=== PATIENT | female | born 1950 | race Caucasian/White ===

== ENCOUNTER 2020-02-20 06:01 | Day surgery (SDC) | payer MEDICARE, OTHER ==
[~2020-02-20 06:01] MED LIST: Acetaminophen 325 MG Tab PO ONE; Lactated Ringers 1,000 ML IV SCH; Lidocaine 1%/Sod Bicarbonate in NS 8.4% 1 ML Syringe IDERM PRN; Pregabalin 25 MG Cap PO SCH; Sodium Chloride 0.9% 10 ML Syringe FLUSH PRN; oxyCODONE ER 10 MG TAB.ER PO SCH
[2020-02-20] MEDS ORDERED: Naloxone 0.4 MG/ML SDV IVPUSH PRN (06:43)
[2020-02-20] MEDS ORDERED: Morphine 2 MG/ML SYRINGE IVPUSH PRN (06:43)
[2020-02-20] MEDS ORDERED: Sennosides 8.6 MG Tab PO PRN (06:43)
[2020-02-20] MEDS ORDERED: Ondansetron 4 MG/2 ML SDV IVPUSH PRN (06:43)
[2020-02-20] MEDS ORDERED: Cyclobenzaprine 10 MG Tab PO PRN (06:43)
[2020-02-20] MEDS ORDERED: Bisacodyl 5 MG Tab PO PRN (06:43)
[2020-02-20] MEDS ORDERED: Magnesium Hydroxide 400 MG/5 ML Susp 30 ML Cup PO PRN (06:43)
--- NOTE | 2020-02-20 07:14 | PCM.PREANE ---
Preanesthetic Assessment - Anesthesia/Transfusion/Family Hx Anesthesia History: Prior Anesthesia Without Reaction Transfusion History: No Prior Transfusion(s) - Review of Systems General: No Symptoms Pulmonary: No Symptoms Cardiovascular: No Symptoms Gastrointestinal: No Symptoms Neurological: No Symptoms Other: Reports: None - Physical Assessment NPO Status Date: 02/19/20 NPO Status Time: 21:15 Vital Signs: Last Vital Signs Temp 97.3 F 02/20/20 06:05 Pulse 70 02/20/20 06:05 Resp 16 02/20/20 06:05 BP 140/84 02/20/20 06:05 Pulse Ox 97 02/20/20 06:05 Height: 1.65 m Weight: 88.451 kg ASA Class: 2 Mental Status: Alert & Oriented x3 Airway Class: Mallampati = 3 Thyro-Mental Finger Breadths: 3 Mouth Opening Finger Breadths: 3 ROM/Head Extension: Full Lungs: Clear to Auscultation, Normal Respiratory Effort Cardiovascular: Regular Rate, Regular Rhythm - Lab Values: Laboratory Last Values SARS Virus RNA (PCR) Negative (NEGATIVE) 02/18/20 13:15 MRSA (PCR) Negative 02/05/20 17:20 - Allergies Allergies/Adverse Reactions: Allergies Allergy/AdvReac Type Severity Reaction Status Date / Time adhesive tape Allergy Itching Verified 02/18/19 09:41 - Acknowledgements Anesthesia Type Planned: General Anesthesia, Spinal, Regional Block (adductor canal) Pt an Appropriate Candidate for the Planned Anesthesia: Yes Alternatives and Risks of Anesthesia Discussed w Pt/Guardian: Yes Pt/Guardian Understands and Agrees with Anesthesia Plan: Yes PreAnesthesia Questionnaire Cardiovascular History: Reports: High Cholesterol Gastrointestinal History: Reports: GERD - Past Surgical History GI Surgical History: Reports: Colonoscopy, EGD, Hernia Repair/Other Female Surgical History: Reports: D&C, Other (See Below) Other Female Surgeries/Procedures: hysteroscopy Other Neurological Surgeries/Procedures: back surgery - no hardware Musculoskeletal Surgical History: Reports: Knee Replacement - SUBSTANCE USE Smoking Status *Q: Never Smoker Recreational Drug Use History: No - HOME MEDS Home Medications: Home Meds Aspirin [Low Dose Aspirin EC] 81 mg PO DAILY 02/20/20 [History] Calcium Carb/Vit D3/Minerals [Calcium 600+D Plus Minerals] 1 tab PO DAILY [History] Cholecalciferol (Vitamin D3) [Vitamin D3] 1,000 unit PO DAILY 02/20/20 [History] Metoprolol Tartrate 25 mg PO DAILY 02/20/20 [History] Multivitamin [Multivitamins] 1 cap PO DAILY 02/20/20 [History] Omeprazole 20 mg PO DAILY 02/20/20 [History] Simvastatin 20 mg PO DAILY 02/20/20 [History] - CURRENT (IN HOUSE) MEDS Current Meds: Current Medications Aspirin (Ecotrin) 325 mg PO BID [facility] Bisacodyl (Dulcolax) 5 mg PO DAILY PRN PRN Reason: Constipation Morphine Sulfate 8 mg/Epinephrine HCl 0.3 mg/Cefuroxime Sodium 750 mg/Ketorolac Tromethamine 30 mg/Sodium Chloride 7.9 ml 0 mg .XX ONETIME ONE Stop: 02/20/20 07:31 Cyclobenzaprine HCl (Flexeril) 10 mg PO TID PRN PRN Reason: Spasms Docusate Sodium (Colace) 100 mg PO BID [facility] Famotidine (Pepcid) 20 mg PO Q12H [facility] Lactated Ringer's (Ringers, Lactated) 1,000 mls @ 125 mls/hr IV ASDIRECTED [facility] Stop: 02/20/20 23:00 Last Admin: 02/20/20 06:51 Dose: 125 mls/hr Cefazolin Sodium/Dextrose 2 gm (/ Premix) 50 mls @ 100 mls/hr IV Q8H [facility] Stop: 02/20/20 23:14 Lidocaine/Sodium Bicarbonate (Buffered Lidocaine 1% In Ns 8.4%) 0.25 ml IDERM ONETIME PRN PRN Reason: Prior to IV Start Stop: 02/20/20 18:00 Last Admin: 02/20/20 06:51 Dose: 0.25 ml Magnesium Hydroxide (Milk Of Magnesia) 30 ml PO BID PRN PRN Reason: Constipation Morphine Sulfate (Morphine) 2 mg IVPUSH Q2H PRN PRN Reason: Breakthrough Pain Naloxone HCl (Narcan) 0.1 mg IVPUSH Q5M PRN PRN Reason: Oversedation Ondansetron HCl (Zofran) 4 mg IVPUSH Q6H PRN PRN Reason: Nausea/Vomiting Oxycodone HCl (Oxycontin) 10 mg PO ONETIME [facility] Stop: 02/20/20 12:00 Last Admin: 02/20/20 06:36 Dose: 10 mg Oxycodone/Acetaminophen (Percocet 325-5 Mg) 1 - 2 tab PO Q4H PRN PRN Reason: Pain Pregabalin (Lyrica) 50 mg PO ONETIME [facility] Stop: 02/20/20 12:00 Last Admin: 02/20/20 06:36 Dose: 50 mg Senna (Senna) 8.6 mg PO BID PRN PRN Reason: Constipation Sodium Chloride (Saline Flush) 10 ml FLUSH ASDIRECTED PRN PRN Reason: Keep Vein Open Stop: 02/20/20 18:00 Discontinued Medications Acetaminophen (Tylenol) 975 mg PO NOW ONE Stop: 02/20/20 05:59 Last Admin: 02/20/20 06:36 Dose: 975 mg Bupivacaine HCl (Sensorcaine-Mpf 0.25%) Confirm Administered Dose 30 ml .ROUTE .STK-MED ONE Stop: 02/20/20 06:24 Cefazolin Sodium (Ancef) Confirm Administered Dose 2 gm .ROUTE .STK-MED ONE Stop: 02/20/20 06:24 Iodine (Iodine 2% Mild Tincture) Confirm Administered Dose 30 ml .ROUTE .STK- MED ONE Stop: 02/20/20 06:24 Tranexamic Acid (Cyklokapron) Confirm Administered Dose 1,000 mg .ROUTE .STK- MED ONE Stop: 02/20/20 06:24 Vancomycin HCl (Vancomycin) Confirm Administered Dose 1 gm .ROUTE .STK-MED ONE Stop: 02/20/20 06:24
[2020-02-20] MEDS ORDERED: ceFAZolin 1 GM Vial ONE (07:28)
[2020-02-20] MEDS ORDERED: Bupivacaine 0.75% 30 ML SDV ONE (07:28)
[2020-02-20] MEDS ORDERED: Midazolam 1 MG/ML 2 ML SDV ONE (07:29)
[2020-02-20] MEDS ORDERED: Propofol 200 MG/20 ML SDV ONE (07:29)
[2020-02-20] MEDS ORDERED: Lidocaine 1% 4 ML ONE (07:33)
[2020-02-20] MEDS: Iodine/Sodium Iodide 2% Tincture 30 ML Bottle ONE ×2 (08:33→08:54)
[2020-02-20] MEDS: ceFAZolin 1 GM Vial ONE ×2 (08:33→08:54)
[2020-02-20] MEDS: Bupivacaine 0.25% 10 ML SDV ONE ×2 (08:35→08:58)
[2020-02-20] MEDS: Vancomycin 1 GM SDV ONE ×2 (08:38→09:02)
[2020-02-20] MEDS: Morphine 8 MG, EPINEPHrine 0.3 MG, Cefuroxime 750 MG, Ketorolac 30 MG, Sodium Chloride ... ONE ×10 (08:39→08:58)
[2020-02-20] MEDS ORDERED: Ropivacaine 0.5% 5 MG/ML 30 ML SDV ONE (08:58)
[2020-02-20] MEDS ORDERED: EPINEPHrine 1 MG/ML SDV ONE (08:58)
--- NOTE | 2020-02-20 09:57 | PCM.POSTAN ---
POST ANESTHESIA ASSESSMENT - MENTAL STATUS Mental Status: Alert, Oriented - VITAL SIGNS Vital Signs: Last Vital Signs Temp 97.2 F 02/20/20 09:30 Pulse 70 02/20/20 06:05 Resp 18 02/20/20 09:30 BP 122/56 L 02/20/20 09:30 Pulse Ox 94 L 02/20/20 09:30 - RESPIRATORY Respiratory Status: Respiratory Rate WNL, Airway Patent, O2 Saturation Stable - CARDIOVASCULAR CV Status: Pulse Rate WNL, Blood Pressure Stable - GASTROINTESTINAL GI Status: No Symptoms - PAIN Pain Score: 0 (post SAB) - POST OP HYDRATION Hydration Status: Adequate & Stable
--- NOTE | 2020-02-20 10:06 | PCM.PRNOTE ---
- Free Text/Narrative Note: Postoperative regional pain control requested by surgeon. Pre-op Dx: Rt knee osteoarthritis. Post-op Rx: Total Rt knee arthroplasty. Procedure: Rt Adductor canal block with U/S guidance Requesting physician: Dr. Eugenio Sylvester� Risks and benefits discussed with the patient preoperatively including infection , bleeding, incomplete or failed block, possible nerve damage, local anesthetic toxicity. Permit signed. Patient after spinal anesthesia post surgery in PACU, stable , alert and awake. Time out performed. Right mid-thigh was prepped with Chloraprep x 1 and allowed to dry. Under aseptic technique, the right femoral artery and sartorius muscle were identified under ultrasound prior to needle insertion. 4" Stimuplex needle #22 [id number] was inserted under US guidance. Under direct visualization of needle tip the injection of 0.5% Ropivacaine with 1:200k epinephrine and 100mcg of Clonidine , total of 30 mls in divided doses, maintaining negative aspiration was completed without problems. No local anesthetic toxicity was noted. Patient is awake, stable and tolerated the procedure well. Time: 09:43 - 09:51 Please see attached U/S pictures.
[2020-02-20] MEDS ORDERED: cloNIDine 1,000 MCG/10 ML SDV ONE (10:34)
--- NOTE | 2020-02-20 10:39 | CR ---
Right knee: AP and lateral views of the right knee were obtained. Comparison: No prior knee exam is available. Knee prosthesis is seen. Components are aligned. Soft tissue air is noted from the surgical procedure. No underlying bony abnormality is seen. Impression: 1. Satisfactory radiographic appearance of recently placed right knee prosthesis. Diagnostic code #2 This report was dictated in MDT
--- NOTE | 2020-02-20 10:56 | PCM.OPNOTE ---
- General Post-Op/Procedure Note Date of Surgery/Procedure: 02/20/20 Operative Procedure(s): right total knee arthroplasty Pre Op Diagnosis: right knee osteoarthrosis Post-Op Diagnosis: Same Anesthesia Technique: Local, MAC, Spinal Primary Surgeon: Eugenio Campbell Anesthesia Provider: Kael Ho Radiosonde Operator: Dina Lopez Radiosonde Operator: Sapna Kessler EBWild in mLs: 5 Complications: None Condition: Good Free Text/Narrative:: Intake & Output 02/19/20 02/20/20 02/20/20 22:59 06:59 14:59 Intake Total 400 Balance 400 3/ 10mm 29x9
[2020-02-20] MEDS ORDERED: Lactated Ringers 1,000 ML ONE (12:13)
[2020-02-20] MEDS: ceFAZolin 2 GM in Premix Bag 1 BAG IV SCH (15:23)
--- NOTE | 2020-02-20 15:58 | OR ---
DATE OF OPERATION: 02/20/2020 SURGEON: Eugenio Campbell MD OPERATION PERFORMED: Right total knee arthroplasty. PREOPERATIVE DIAGNOSIS: Right knee osteoarthrosis. POSTOPERATIVE DIAGNOSIS: Right knee osteoarthrosis. ANESTHESIA: Local MAC with spinal. ANESTHESIA PROVIDER: Aidee Vasquez. ASSISTANTS: 1. Dina Lopez PA-C. 2. Sapna Kessler LPN. ESTIMATED BLOOD LOSS: 5 mL. COMPLICATIONS: None. CONDITION: Stable. IMPLANTS: 1. [place] size 3 cemented PS femur. 2. Olivia size 3 cemented [place] tibial baseplate. 3. Olivia size 3, 10 mm PS X3 polyethylene. 4. Olivia size 29 x 9 mm cemented asymmetric patella. DESCRIPTION OF PROCEDURE: The patient was identified in the preop holding area. Proper site was marked and identified by the surgeon. The patient was taken back to the operating theater. After adequate anesthesia, the patient's right lower extremity had a nonsterile tourniquet applied and it was sterilely prepped and draped in the usual sterile fashion. OR time-out was performed. The patient received 2 g IV Ancef. At this time, the right lower extremity was exsanguinated. Tourniquet was insufflated to 300 mmHg. Standard medial parapatellar incision was made. Medial parapatellar arthrotomy was created. Deep fibers of the MCL were raised and anterior fat pad was resected. At this time, attention was turned to the patella. Patella measured 21, it was resected to a 13 for a 29 x 9 mm patella. Drill holes were then drilled and found to be in adequate position. The drill was then drilled in the distal femur and the intramedullary distal femoral cutting guide was then placed. 8 mm was resected off the distal femur and was found to be an adequate resection. Sizing guide was placed. It was found to be a size 3 cemented PS femur that was shown on the implant record at the beginning of this dictation. The drill holes were drilled for the epicondylar axis using Whitesides line and epicondyles as reference. At this time, the 4-in-1 cutting block was placed. An anterior posterior and anterior and posterior chamfer cuts were then completed. Box cut was completed at this time. Attention was turned to the tibia. The posterior medial lateral retractors were placed. The extramedullary tibial guide was placed. It was placed in the old footprint of the ACL. It was aligned with the center of the ankle and 0 degrees of slope, 9 mm was then resected off the unaffected side. There was found to be an acceptable reduction. At this time, posterior osteophytes were removed along with medial and lateral meniscus. A trial implant was placed with a correct sized tibia that was mentioned at the beginning of the dictation. A [place] size 3, 10 mm PS X3 polyethylene insert was then placed. The patient's knee was brought through range of motion. The patella was tracking centrally and was stable to varus and valgus stress. Alignment was found to be roughly at 0 degrees. The tibia was stamped and drilled in proper rotation. Cement was mixed and all cut surfaces were irrigated and dried. The universal tibial base plate was impacted in place. Next, the [place] size 3 cemented PS femur impacted into place and the [place] size 3, 10 mm PS X3 polyethylene insert was placed. The patient's knee was brought into full extension. The patella was then cemented in place at this time. One liter dilute Betadine solution was irrigated through the knee along with 3 L of pulse lavage irrigation with Ancef. Periarticular injection was then completed. The patient's knee was brought through a range of motion. Once the cement had time to set up and it was found to be stable to varus valgus stress, the patella was tracking centrally with full range of motion. At this time, a #2 barbed suture was used for closure of the medial parapatellar arthrotomy. Topical tranexamic acid was placed. 2-0 Vicryl was used subcutaneously, Prineo was used for the skin. The patient tolerated the procedure well and was sent to the PACU in stable condition. MMODAL /[id number] PHILIPPE
[2020-02-20] MEDS: Acetaminophen/oxyCODONE 325-5 MG Tab PO PRN ×2 (16:24→20:39)
[2020-02-20] MEDS: Famotidine 20 MG Tab PO SCH (20:39)
[2020-02-20] MEDS: Docusate Sodium 100 MG Cap PO SCH (20:39)
[2020-02-20] MEDS ORDERED: Simvastatin 20 MG Tab PO SCH (21:00)
[2020-02-21] MEDS: Acetaminophen/oxyCODONE 325-5 MG Tab PO PRN ×3 (00:08→10:31)
[2020-02-21] MEDS: ceFAZolin 2 GM in Premix Bag 1 BAG IV SCH ×2 (00:09→06:34)
[2020-02-21] MEDS: Aspirin 325 MG Tab.EC PO SCH ×2 (06:34→08:23)
[2020-02-21] MEDS ORDERED: Pantoprazole 40 MG Tab.CR PO SCH (07:00)
[2020-02-21] MEDS: Docusate Sodium 100 MG Cap PO SCH (08:24)
--- NOTE | 2020-02-21 08:25 | PCM.SURGPN ---
- General Info Date of Service: 02/21/20 POD#: 1 Functional Status: Reports: Pain Controlled, Tolerating Diet, Ambulating, Urinating, Incentive Spirometry - Patient Data Vitals - Most Recent: Last Vital Signs Temp 98.1 F 02/21/20 04:47 Pulse 68 02/21/20 04:47 Resp 16 02/21/20 04:47 BP 125/68 02/21/20 04:47 Pulse Ox 94 L 02/21/20 04:47 Weight - Most Recent: 195 lb I&O - Last 24 Hours: Intake & Output 02/20/20 02/21/20 02/21/20 22:59 06:59 14:59 Intake Total 770 470 Output Total 700 250 Balance 70 220 Lab Results Last 24 Hrs: Laboratory Results - last 24 hr 02/21/20 02/21/20 Range/Units 05:20 05:20 WBC 7.55 (3.98-10.04) K/mm3 RBC 3.56 L (3.98-5.22) M/mm3 Hgb 11.4 (11.2-15.7) gm/dl Hct 36.0 (34.1-44.9) % MCV 101.1 H (79.4-94.8) fl MCH 32.0 (25.6-32.2) pg MCHC 31.7 L (32.2-35.5) g/dl RDW Std Deviation 50.1 H (36.4-46.3) fL Plt Count 243 (182-369) K/mm3 MPV 10.2 (9.4-12.3) fl Sodium 141 (136-145) mEq/L Potassium 3.9 (3.5-5.1) mEq/L Chloride 105 (98-107) mEq/L Carbon Dioxide 30 (21-32) mEq/L Anion Gap 9.9 (5-15) BUN 17 (7-18) mg/dL Creatinine 1.0 (0.55-1.02) mg/dL Est Cr Clr Drug Dosing 48.45 mL/min Estimated GFR (MDRD) 55 (>60) mL/min BUN/Creatinine Ratio 17.0 (14-18) Glucose 127 H (80-115) mg/dL Calcium 8.7 (8.5-10.1) mg/dL Total Bilirubin 0.5 (0.2-1.0) mg/dL AST 25 (15-37) U/L ALT 31 (14-59) U/L Alkaline Phosphatase 63 (46-116) U/L Total Protein 5.9 L (6.4-8.2) g/dl Albumin 3.0 L (3.4-5.0) g/dl Globulin 2.9 gm/dL Albumin/Globulin Ratio 1.0 (1-2) Med Orders - Current: Current Medications Aspirin (Ecotrin) 325 mg PO BID [facility] Last Admin: 02/21/20 06:34 Dose: Not Given Bisacodyl (Dulcolax) 5 mg PO DAILY PRN PRN Reason: Constipation Calcium Carbonate (Calcium Carbonate/Vitamin D 600 Mg-200 Unit) 1 tab PO DAILY [facility] Last Admin: 02/21/20 08:21 Dose: 1 tab Cholecalciferol (Vitamin D3) 25 mcg PO DAILY [facility] Last Admin: 02/21/20 08:22 Dose: 25 mcg Cyclobenzaprine HCl (Flexeril) 10 mg PO TID PRN PRN Reason: Spasms Docusate Sodium (Colace) 100 mg PO BID [facility] Last Admin: 02/20/20 20:39 Dose: 100 mg Famotidine (Pepcid) 20 mg PO Q12H [facility] Last Admin: 02/20/20 20:39 Dose: 20 mg Magnesium Hydroxide (Milk Of Magnesia) 30 ml PO BID PRN PRN Reason: Constipation Metoprolol Tartrate (Lopressor) 25 mg PO DAILY [facility] Morphine Sulfate (Morphine) 2 mg IVPUSH Q2H PRN PRN Reason: Breakthrough Pain Multivitamins (Thera) 1 each PO DAILY [facility] Last Admin: 02/21/20 08:21 Dose: 1 each Naloxone HCl (Narcan) 0.1 mg IVPUSH Q5M PRN PRN Reason: Oversedation Ondansetron HCl (Zofran) 4 mg IVPUSH Q6H PRN PRN Reason: Nausea/Vomiting Oxycodone/Acetaminophen (Percocet 325-5 Mg) 1 - 2 tab PO Q4H PRN PRN Reason: Pain Last Admin: 02/21/20 04:52 Dose: 2 tab Pantoprazole Sodium (Protonix) 40 mg PO DAILY@0700 [facility] Last Admin: 02/21/20 06:45 Dose: 40 mg Senna (Senna) 8.6 mg PO BID PRN PRN Reason: Constipation Simvastatin (Zocor) 20 mg PO BEDTIME [facility] Last Admin: 02/20/20 20:38 Dose: 20 mg Discontinued Medications Acetaminophen (Tylenol) 975 mg PO NOW ONE Stop: 02/20/20 05:59 Last Admin: 02/20/20 06:36 Dose: 975 mg Bupivacaine HCl (Sensorcaine-Mpf 0.25%) Confirm Administered Dose 30 ml .ROUTE .STK-MED ONE Stop: 02/20/20 06:24 Last Admin: 02/20/20 08:58 Dose: 30 ml Bupivacaine HCl (Sensorcaine-Mpf 0.75%) Confirm Administered Dose 30 ml .ROUTE .STK-MED ONE Stop: 02/20/20 07:29 Cefazolin Sodium (Ancef) Confirm Administered Dose 2 gm .ROUTE .STK-MED ONE Stop: 02/20/20 06:24 Last Admin: 02/20/20 08:54 Dose: 2 gm Cefazolin Sodium (Ancef) Confirm Administered Dose 2 gm .ROUTE .STK-MED ONE Stop: 02/20/20 07:29 Clonidine HCl (Duraclon) Confirm Administered Dose 1,000 mcg .ROUTE .STK-MED ONE Stop: 02/20/20 10:35 Morphine Sulfate 8 mg/Epinephrine HCl 0.3 mg/Cefuroxime Sodium 750 mg/Ketorolac Tromethamine 30 mg/Sodium Chloride 7.9 ml 0 mg .XX ONETIME ONE Stop: 02/20/20 07:31 Last Admin: 02/20/20 08:58 Dose: 788.3 mg Epinephrine HCl (Adrenalin) Confirm Administered Dose 1 mg .ROUTE .STK-MED ONE Stop: 02/20/20 08:59 Lactated Ringer's (Ringers, Lactated) 1,000 mls @ 125 mls/hr IV ASDIRECTED [facility] Stop: 02/20/20 23:00 Last Admin: 02/20/20 06:51 Dose: 125 mls/hr Cefazolin Sodium/Dextrose 2 gm (/ Premix) 50 mls @ 100 mls/hr IV Q8H [facility] Stop: 02/21/20 07:59 Last Admin: 02/21/20 06:34 Dose: Not Given Lidocaine HCl (Xylocaine-Mpf 1%) Confirm Administered Dose 4 mls @ as directed .ROUTE .STK-MED ONE Stop: 02/20/20 07:34 Lactated Ringer's (Ringers, Lactated) Confirm Administered Dose 1,000 mls @ as directed .ROUTE .STK-MED ONE Stop: 02/20/20 12:14 Iodine (Iodine 2% Mild Tincture) Confirm Administered Dose 30 ml .ROUTE .STK- MED ONE Stop: 02/20/20 06:24 Last Admin: 02/20/20 08:54 Dose: 18 ml Lidocaine/Sodium Bicarbonate (Buffered Lidocaine 1% In Ns 8.4%) 0.25 ml IDERM ONETIME PRN PRN Reason: Prior to IV Start Stop: 02/20/20 18:00 Last Admin: 02/20/20 06:51 Dose: 0.25 ml Midazolam HCl (Versed 1 Mg/Ml) Confirm Administered Dose 2 mg .ROUTE .STK-MED ONE Stop: 02/20/20 07:30 Oxycodone HCl (Oxycontin) 10 mg PO ONETIME [facility] Stop: 02/20/20 12:00 Last Admin: 02/20/20 06:36 Dose: 10 mg Pregabalin (Lyrica) 50 mg PO ONETIME [facility] Stop: 02/20/20 12:00 Last Admin: 02/20/20 06:36 Dose: 50 mg Propofol (Diprivan 20 Ml) Confirm Administered Dose 400 mg .ROUTE .ST-MED ONE Stop: 02/20/20 07:30 Ropivacaine (Naropin 0.5%) Confirm Administered Dose 30 ml .ROUTE .ST-MED ONE Stop: 02/20/20 08:59 Sodium Chloride (Saline Flush) 10 ml FLUSH ASDIRECTED PRN PRN Reason: Keep Vein Open Stop: 02/20/20 18:00 Tranexamic Acid (Cyklokapron) Confirm Administered Dose 1,000 mg .ROUTE .STK- MED ONE Stop: 02/20/20 06:24 Last Admin: 02/20/20 09:02 Dose: 1,000 mg Vancomycin HCl (Vancomycin) Confirm Administered Dose 1 gm .ROUTE .STK-MED ONE Stop: 02/20/20 06:24 Last Admin: 02/20/20 09:02 Dose: 1 gm - Exam Wound/Incisions: Dressing Dry and Intact General: Alert, Cooperative, No Acute Distress Lungs: Normal Respiratory Effort Extremities: Other (NVS intact for BLE. Shruthi's negative for BLE. ) Sepsis Event Note - Evaluation Sepsis Screening Result: No Definite Risk - Focused Exam Vital Signs: Vital Signs Temp Pulse Resp BP Pulse Ox 02/21/20 04:47 98.1 F 68 16 125/68 94 L 02/21/20 00:15 102/62 02/21/20 00:14 98.4 F 63 20 90 L 02/20/20 20:47 97.7 F 75 16 108/95 H 94 L Date Exam was Performed: 02/21/20 Time Exam was Performed: 08:23 - Problem List Review Problem List Initiated/Reviewed/Updated: Yes - My Orders Last 24 Hours: Active Orders 24 hr Category Date Time Status Antiembolic Devices [RC] QSHIFT Care 02/21/20 06:33 Active Ready for Discharge [RC] PER UNIT ROUTINE Care 02/21/20 08:20 Ordered Regular Diet [DIET] Diet 02/20/20 Lunch Active Aspirin [Ecotrin] Med 02/21/20 06:43 Active 325 mg PO BID Calcium Carbonate/Vitamin D3 [Calcium Carbonate/Vitamin Med 02/21/20 09:00 Active D 600 MG-200 Unit] 1 tab PO DAILY Cholecalciferol (Vitamin D3) [Vitamin D3] Med 02/21/20 09:00 Active 25 mcg PO DAILY Docusate Sodium [Colace] Med 02/20/20 21:00 Active 100 mg PO BID Famotidine [Pepcid] Med 02/20/20 21:00 Active 20 mg PO Q12H Metoprolol Tartrate [Lopressor] Med 02/21/20 09:00 Active 25 mg PO DAILY Multivitamins,Therapeutic [Thera] Med 02/21/20 09:00 Active 1 each PO DAILY Pantoprazole [ProTONIX] Med 02/21/20 07:00 Active 40 mg PO DAILY@0700 Simvastatin [Zocor] Med 02/20/20 21:00 Active 20 mg PO BEDTIME [facility] Hose [Antiembolic Hose] [OM.PC] QSHIFT Oth 02/21/20 06:32 Ordered Medication Orders Aspirin (Ecotrin) 325 mg PO BID [facility] Last Admin: 02/21/20 06:34 Dose: Bisacodyl (Dulcolax) 5 mg PO DAILY PRN PRN Reason: Constipation Calcium Carbonate (Calcium Carbonate/Vitamin D 600 Mg-200 Unit) 1 tab PO DAILY [facility] Last Admin: 02/21/20 08:21 Dose: 1 tab Cholecalciferol (Vitamin D3) 25 mcg PO DAILY [facility] Last Admin: 02/21/20 08:22 Dose: 25 mcg Cyclobenzaprine HCl (Flexeril) 10 mg PO TID PRN PRN Reason: Spasms Docusate Sodium (Colace) 100 mg PO BID [facility] Last Admin: 02/20/20 20:39 Dose: 100 mg Famotidine (Pepcid) 20 mg PO Q12H [facility] Last Admin: 02/20/20 20:39 Dose: 20 mg Magnesium Hydroxide (Milk Of Magnesia) 30 ml PO BID PRN PRN Reason: Constipation Metoprolol Tartrate (Lopressor) 25 mg PO DAILY [facility] Morphine Sulfate (Morphine) 2 mg IVPUSH Q2H PRN PRN Reason: Breakthrough Pain Multivitamins (Thera) 1 each PO DAILY [facility] Last Admin: 02/21/20 08:21 Dose: 1 each Naloxone HCl (Narcan) 0.1 mg IVPUSH Q5M PRN PRN Reason: Oversedation Ondansetron HCl (Zofran) 4 mg IVPUSH Q6H PRN PRN Reason: Nausea/Vomiting Oxycodone/Acetaminophen (Percocet 325-5 Mg) 1 - 2 tab PO Q4H PRN PRN Reason: Pain Last Admin: 02/21/20 04:52 Dose: 2 tab Admin: 02/21/20 00:08 Dose: 2 tab Admin: 02/20/20 20:39 Dose: 2 tab Admin: 02/20/20 16:24 Dose: 1 tab Pantoprazole Sodium (Protonix) 40 mg PO DAILY@0700 [facility] Last Admin: 02/21/20 06:45 Dose: 40 mg Senna (Senna) 8.6 mg PO BID PRN PRN Reason: Constipation Simvastatin (Zocor) 20 mg PO BEDTIME [facility] Last Admin: 02/20/20 20:38 Dose: 20 mg - Assessment Assessment (Free Text/Narrative):: POD#1 - right TKA - Plan Plan (Free Text/Narrative):: 1. Hgb 11.4. 2. Discharge to home today. 3. 325mg ASA PO BID, frequent mobility, TEDs. 4. Outpatient therapy. The pt's case was discussed with Dr. Campbell.
[2020-02-21] MEDS: Famotidine 20 MG Tab PO SCH (08:26)
[2020-02-21] MEDS ORDERED: Calcium Carbonate/Vitamin D3 600 MG-200 Units Tab PO SCH (09:00)
[2020-02-21] MEDS ORDERED: Cholecalciferol (Vitamin D3) 25 MCG Tab PO SCH (09:00)
[2020-02-21] MEDS ORDERED: Metoprolol Tartrate 25 MG Tab PO SCH (09:00)
[2020-02-21] MEDS ORDERED: Multivitamins,Therapeutic Tab PO SCH (09:00)
[2020-02-21] MEDS ORDERED: Ondansetron 4 MG Tab.DIS PO PRN (09:58)
== END 2020-02-21 11:22 | disposition home or self-care (01) ==
LOC: JD.SDS 06:01 → JD.MS 06:04 → JD.SDS 02-21 11:22
PROVIDERS: ATTEND Orthopaedic Surgery
DX: M17.11 Unilateral primary osteoarthritis, right knee (principal); Z11.59 Encounter for screening for other viral diseases; E78.00 Pure hypercholesterolemia, unspecified; Z91.09 Other allergy status, other than to drugs and biological substances; Z79.899 Other long term (current) drug therapy; Z79.82 Long term (current) use of aspirin
CPT/HCPCS: 27447; 36415; 64447; 73560; 80053; 85027; 87641; 97110; 97116; 97162; 97165; 97530; 97535; A9270; C1713; C1776; J0171; J0690; J0697; J0735; J1885; J2001; J2250; J2270; J2704; J2795; J3370; J3490; J7120; U0002; 01402; 64450; J2405

== ENCOUNTER 2021-03-02 08:07 | Day surgery (SDC) | payer MEDICARE, OTHER ==
[2021-03-02] MEDS: Polymyxin B/Trimethoprim 10 ML Bottle EYELF SCH ×4 (08:15→10:12)
[2021-03-02] MEDS: Brimonidine 0.2% Ophth Soln 5 ML Bottle EYELF SCH ×4 (08:24→10:12)
[2021-03-02] MEDS: Phenylephrine 2.5% Ophth Soln 2 ML Bot EYELF SCH ×6 (08:31→10:01)
[2021-03-02] MEDS: Tropicamide 1% Ophth Soln 15 ML Bottle EYELF SCH ×4 (08:36→09:27)
[2021-03-02] MEDS ORDERED: LORazepam 0.5 MG Tab PO ONE (08:43)
--- NOTE | 2021-03-02 08:55 | PCM.PREANE ---
Preanesthetic Assessment - Procedure Proposed Procedure: left cataract extraction with IOL - Anesthesia/Transfusion/Family Hx Anesthesia History: Prior Anesthesia Without Reaction Family History of Anesthesia Reaction: No Transfusion History: No Prior Transfusion(s) Intubation History: Unknown - Review of Systems General: No Symptoms Pulmonary: No Symptoms Cardiovascular: No Symptoms Gastrointestinal: No Symptoms Neurological: No Symptoms Other: Reports: None - Physical Assessment NPO Status Date: 03/01/21 NPO Status Time: 19:15 Height: 1.65 m Weight: 88.904 kg ASA Class: 2 Mental Status: Alert & Oriented x3 Airway Class: Mallampati = 1 Dentition: Reports: Normal Dentition Thyro-Mental Finger Breadths: 3 Mouth Opening Finger Breadths: 5 ROM/Head Extension: Full Lungs: Clear to Auscultation, Normal Respiratory Effort Cardiovascular: Regular Rate, Regular Rhythm - Allergies Allergies/Adverse Reactions: Allergies Allergy/AdvReac Type Severity Reaction Status Date / Time adhesive tape Allergy Itching Verified 03/01/21 14:14 - Blood Blood Available: No - Anesthesia Plan Pre-Op Medication Ordered: None - Acknowledgements Anesthesia Type Planned: MAC Pt an Appropriate Candidate for the Planned Anesthesia: Yes Alternatives and Risks of Anesthesia Discussed w Pt/Guardian: Yes Pt/Guardian Understands and Agrees with Anesthesia Plan: Yes PreAnesthesia Questionnaire Cardiovascular History: Reports: High Cholesterol Gastrointestinal History: Reports: GERD - Past Surgical History GI Surgical History: Reports: Colonoscopy, EGD, Hernia Repair/Other Female Surgical History: Reports: D&C, Other (See Below) Other Female Surgeries/Procedures: hysteroscopy Other Neurological Surgeries/Procedures: back surgery - no hardware Musculoskeletal Surgical History: Reports: Knee Replacement - HOME MEDS Home Medications: Home Meds Calcium Carb/Vit D3/Minerals [Calcium 600+D Plus Minerals] 1 tab PO DAILY 02/20/20 [History] Cholecalciferol (Vitamin D3) [Vitamin D3] 1,000 unit PO DAILY 02/20/20 [History] Metoprolol Tartrate 25 mg PO DAILY 02/20/20 [History] Multivitamin [Multivitamins] 1 cap PO DAILY 02/20/20 [History] Omeprazole 20 mg PO DAILY 02/20/20 [History] Simvastatin 20 mg PO DAILY 02/20/20 [History] - CURRENT (IN HOUSE) MEDS Current Meds: Current Medications Brimonidine Tartrate (Brimonidine 0.2% Ophth Soln 5 Ml Bottle) 0 ml EYELF ASDIRECTED HERMANN Stop: 03/02/21 18:00 Last Admin: 03/02/21 08:24 Dose: 1 drop Documented by: Cefuroxime Sodium (Cefuroxime 10 Mg/Ml Syringe) 0 mg EYELF ASDIRECTED HERMANN Stop: 03/02/21 18:00 Lidocaine HCl (Lidocaine 1% Pf 2 Ml Sdv) 0 ml INJECT ASDIRECTED HERMANN Stop: 03/02/21 18:00 Phenylephrine HCl (Phenylephrine 2.5% Ophth Soln 2 Ml Bot) 0 ml EYELF ASDIRECTED HERMANN Stop: 03/02/21 18:00 Last Admin: 03/02/21 08:42 Dose: 1 drop Documented by: Pilocarpine HCl (Pilocarpine 4% Ophth Soln 15 Ml Bot) 0 ml EYELF ASDIRECTED HERMANN Stop: 03/02/21 18:00 Polymyxin/Trimethoprim Sulfate (Polymyxin B/Trimethoprim 10 Ml Bottle) 0 ml EYELF ASDIRECTED HERMANN Stop: 03/02/21 18:00 Last Admin: 03/02/21 08:15 Dose: 1 drop Documented by: Tetracaine HCl (Tetracaine Hcl/Pf 0.5% 4 Ml Bottle) 0 ml EYEBOTH ASDIRECTED HERMANN Stop: 03/02/21 18:00 Tropicamide (Tropicamide 1% Ophth Soln 15 Ml Bottle) 0 ml EYELF ASDIRECTED HERMANN Stop: 03/02/21 18:00 Last Admin: 03/02/21 08:36 Dose: 1 drop Documented by: Discontinued Medications Lorazepam (Lorazepam 0.5 Mg Tab) 0.5 mg PO ONETIME ONE Stop: 03/02/21 08:44
[2021-03-02] MEDS: Tetracaine HCl/PF 0.5% 4 ML Bottle EYEBOTH SCH ×5 (09:33→10:03)
[2021-03-02] MEDS: Lidocaine 1% PF 2 ML SDV INJECT SCH ×2 (09:58→10:03)
[2021-03-02] MEDS: Pilocarpine 4% Ophth Soln 15 ML Bot EYELF SCH ×2 (10:01→10:12)
[2021-03-02] MEDS: Cefuroxime 10 MG/ML SYRINGE EYELF SCH ×2 (10:03→10:11)
--- NOTE | 2021-03-02 10:13 | PCM48HPAN ---
Post Anesthesia Note - EVALUATION WITHIN 48HRS OF ANESTHETIC Vital Signs in Normal Range: Yes Patient Participated in Evaluation: Yes Respiratory Function Stable: Yes Airway Patent: Yes Cardiovascular Function Stable: Yes Hydration Status Stable: Yes Pain Control Satisfactory: Yes Nausea and Vomiting Control Satisfactory: Yes Mental Status Recovered: Yes Vital Signs: Last Vital Signs Temp 36.9 C 03/02/21 07:55 Pulse 57 L 03/02/21 07:55 Resp 16 03/02/21 07:55 BP 151/84 H 03/02/21 07:55 Pulse Ox 96 03/02/21 07:55
== END 2021-03-02 10:25 | disposition home or self-care (01) ==
LOC: JD.SDS 08:07
PROVIDERS: ATTEND Ophthalmology
DX: H25.812 Combined forms of age-related cataract, left eye (principal); E78.00 Pure hypercholesterolemia, unspecified; I10 Essential (primary) hypertension; K21.9 Gastro-esophageal reflux disease without esophagitis; Z98.890 Other specified postprocedural states; Z91.048 Other nonmedicinal substance allergy status
CPT/HCPCS: 66984; A9270; J0697; C1780